=== PATIENT | female | born 1990 ===

== ENCOUNTER 2016-08-10 11:08 | Emergency (ER) | payer OTHER ==
[2016-08-10 11:31] VITALS: BMI 25.4
[2016-08-10 11:34] VITALS: RESP 18; TEMP 98.6; O2SAT 98
--- NOTE | 2016-08-10 14:11 | C.PDOC ---
History Of Present Illness 25 y/o female presents to the ED with complains of headache x3 days. Pt has not taken any medications at home, pt is 3 mo and doesn't know what medications she can take. Pt denies visual changes, nausea, vomiting, fever or any other complaints. No abdominal pain, vaginal bleeding or discharge. Time Seen by Provider: 08/10/16 13:22 Chief Complaint (Nursing): Headache History Per: Patient, Family History/Exam Limitations: language barrier Onset/Duration Of Symptoms: Days Current Symptoms Are (Timing): Still Present Severity: Mild Quality: "Pain" Preceeding Symptoms: None Recent travel outside of the [place]: No Past Medical History Reviewed: Historical Data, Nursing Documentation, Vital Signs Vital Signs: Last Vital Signs Temp 98.6 F 08/10/16 11:31 Pulse 85 08/10/16 15:20 Resp 18 08/10/16 15:20 BP 119/65 08/10/16 15:20 Pulse Ox 98 08/10/16 15:20 Family History: States: Unknown Family Hx - Social History Hx Alcohol Use: No Hx Substance Use: No - Immunization History Hx Tetanus Toxoid Vaccination: No Hx Influenza Vaccination: No Hx Pneumococcal Vaccination: No Review Of Systems Except As Marked, All Systems Reviewed And Found Negative. Constitutional: Negative for: Fever, Chills Eyes: Negative for: Vision Change Gastrointestinal: Negative for: Nausea, Vomiting Neurological: Positive for: Headache Physical Exam - Physical Exam Appears: Non-toxic, No Acute Distress Skin: Warm, Dry, No Rash Head: Atraumatic, Normacephalic Eye(s): bilateral: Normal Inspection, PERRL, EOMI Ear(s): Bilateral: Normal Nose: Normal Oral Mucosa: Moist Chest: Symmetrical Cardiovascular: Rhythm Regular Respiratory: Normal Breath Sounds, No Rales, No Rhonchi, No Wheezing Gastrointestinal/Abdominal: Soft, No Tenderness Extremity: Bilateral: Atraumatic Neurological/Psych: Oriented x3, Normal Speech, Normal Cognition, Normal Cranial Nerves (2- 12 grossly intact), Normal Motor, Normal Sensation ED Course And Treatment O2 Sat by Pulse Oximetry: 98 (on room air) Pulse Ox Interpretation: Normal Progress Note: Plan: tylenol. 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 Patient has no neurologic deficit, photophobia, rash, fever, or nuchal rigidity. Patient was instructed to follow up with physician/clinic in 1-2 days. Disposition - Disposition Disposition: HOME/ ROUTINE Disposition Time: 14:33 Condition: STABLE Additional Instructions: Vaya a holden mdico o la clnica en 2-5 zuniga sin falta, para mas evaluacin. [place] los medicamentos mamta indicado. Volver a la oswaldo de emergencia en cualquier momento si los sntomas persisten o empeoran. Prescriptions: Acetaminophen [Tylenol 325mg tab] 650 mg PO Q4 PRN #20 tab PRN Reason: Pain, Mild (1-3) Instructions: Acute Headache (ED) Print Language: QATARI - Clinical Impression Clinical Impression: Headache - PA / FANCY SEWER / Resident Statement MD/DO has reviewed & agrees with the documentation as recorded. - Scribe Statement The provider has reviewed the documentation as recorded by the Scribe Nico Morales All medical record entries made by the Scribe were at my direction and personally dictated by me. I have reviewed the chart and agree that the record accurately reflects my personal performance of the history, physical exam, medical decision making, and the department course for this patient. I have also personally directed, reviewed, and agree with the discharge instructions and disposition.
[2016-08-10 15:21] VITALS: BP 119/65; PULSE 85
== END 2016-08-10 15:21 | disposition home or self-care (01) ==
LOC: C.ER 11:08
DX: R51 Headache (principal)

== ENCOUNTER 2017-01-23 08:31 | Inpatient (IN) | payer SELFPAY ==
[2017-01-23] MEDS ORDERED: Lactated Ringer's 1,000 ML IV SCH (09:30)
--- NOTE | 2017-01-23 09:31 | OBHP ---
Datetime: 01/23/2017 09:11 IP Adm Impression: Term, intrauterine IP Admit Plan: Admit to unit Admit Comment, IP Provider: 26 y/o @ 38.3 wks [place] [facility] 02/03/17 c/o of LOF bloody at 7:30am, follo wed by contractiong intiially every 15 minutes now eveyr 5, increasing intesntiy and frequency. Pt d enies gross VB, +FM. Pt reports On Wednesday had flu like symptms adn reports subjective fever that katie f resolved. Pt states was not feeling well and took Robittusin. Pt deies any fever, chills, nasue, v omiting, cough, congestion and reports feeling better. 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: denies hx of abnormal pap, fibroids, ovarian cyst, STI PMH: denies PSH: Hernia repair age 7 and 9 FHX: denies MED: PNV, Robittusin x 3 day SHX: negative etoh/tobacco/drugs A/P @ 38.3 wks [facility] in early labor -admit to L+D -npo, ivf -admission labs -request records (pt is unaare of gbs status) -cont toco adn efm -scs -pain managment Pelvic Type - PN: Adequate Extremities - PN: Normal Abdomen - PN: Normal Back - PN: Normal Breast - PN: Normal Lungs - PN: Normal Heart - PN: Normal Thyroid - PN: Normal Neurologic - PN: Normal HEENT - PN: Normal General - PN: Normal Weight - Estimated: 3200 Presentation-Admit: Vertex FHR - Baseline A Provider: 150 Amniotic Fluid Color, Provider: Bloody Membranes, Provider: Ruptured Contraction Comments Provider: q 2-4 min Gestation - Est Wks by US: 38.3 Vital Signs Provider: Reviewed; Within Normal Limits IP Chief Complaint: Suspected ruptured membranes NICHD Variability Prov Fetus A: Moderate 6-25bpm NICHD Decel Fetus A IP Provider: None Dilatation, Provider: 1 Effacement, Provider: 50 Station, Provider: -3 Genitourinary Exam: Normal DTRs - PN: Normal
[2017-01-23] MEDS ORDERED: Penicillin G Potassium 5 MU in Dextrose 5% In Water 50 ML IV ONE (09:35)
--- NOTE | 2017-01-23 09:36 | OBADHP ---
Datetime: 01/23/2017 09:11 Admit Comment, IP Provider: 26 y/o @ 38.3 wks [place] [facility] 02/03/17 c/o of LOF bloody at 7:30am, follo wed by contractiong intiially every 15 minutes now eveyr 5, increasing intesntiy and frequency. Pt d enies gross VB, +FM. Pt reports On Wednesday had flu like symptms adn reports subjective fever that katie f resolved. Pt states was not feeling well and took Robittusin. Pt deies any fever, chills, nasue, v omiting, cough, congestion and reports feeling better. 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 hx of abnormal pap, fibroids, ovarian cyst, STI PMH: denies PSH: Hernia repair age 7 and 9 FHX: denies MED: PNV, Robittusin x 3 day SHX: negative etoh/tobacco/drugs A/P @ 38.3 wks [place] [facility] in early labor -admit to L+D -npo, ivf -admission labs -request records (pt is unaare of gbs status) -cont toco adn efm -scs -pain managment Pelvic Type - PN: Adequate Extremities - PN: Normal Abdomen - PN: Normal Back - PN: Normal Breast - PN: Normal Lungs - PN: Normal Heart - PN: Normal Thyroid - PN: Normal Neurologic - PN: Normal HEENT - PN: Normal General - PN: Normal Weight - Estimated: 3200 Presentation-Admit: Vertex FHR - Baseline A Provider: 150 Amniotic Fluid Color, Provider: Bloody Membranes, Provider: Ruptured Contraction Comments Provider: q 2-4 min Gestation - Est Wks by US: 38.3 Vital Signs Provider: Reviewed; Within Normal Limits IP Chief Complaint: Suspected ruptured membranes NICHD Variability Prov Fetus A: Moderate 6-25bpm NICHD Decel Fetus A IP Provider: None Dilatation, Provider: 1 Effacement, Provider: 50 Station, Provider: -3 Genitourinary Exam: Normal DTRs - PN: Normal IP Adm Impression: Term, intrauterine IP Admit Plan: Admit to unit
[2017-01-23] MEDS ORDERED: Oxytocin 30 UNIT 30 UNITS/500 ML BAG IV SCH ×2 (10:30→21:00)
[2017-01-23 10:34] LABS: BASO % 0.3 % (0.0-2.0); EOS # 0.1 K/uL (0.0-0.7); EOS % 1.1 % (0.0-4.0); HEMATOCRIT 36.8 % (34.0-47.0); LYMPH # 1.3 K/uL (1.0-4.3); LYMPH % 16.7 % (20.0-40.0); MEAN CELL VOLUME 87.1 fL (81.0-99.0); MEAN CORPUSCULAR HEMOGLOBIN 29.4 pg (27.0-31.0); MEAN CORPUSCULAR HGB CONC 33.7 g/dL (33.0-37.0); MEAN PLATELET VOLUME 9.2 fL (7.2-11.7); MONO # 0.5 K/uL (0.0-0.8); MONO % 6.7 % (0.0-10.0); NRBC % 0.1 % (0.0-2.0); RED CELL DISTRIBUTION WIDTH 14.2 % (11.5-14.5); WHITE BLOOD COUNT 7.6 K/uL (4.8-10.8)
[2017-01-23 10:37] LABS: RBC URINE 135 /hpf (0-3); URINE BACTERIA RARE (<OCC); URINE BILIRUBIN NEGATIVE (NEGATIVE); URINE BLOOD 2+ (NEGATIVE); URINE COLOR Yellow (YELLOW); URINE GLUCOSE (UA) NORMAL (Normal); URINE KETONE NEGATIVE (NEGATIVE); URINE LEUKOCYTE ESTERASE NEG Leu/uL (Negative); URINE PROTEIN NEGATIVE (NEGATIVE); URINE UROBILINOGEN NORMAL mg/dL (0.2-1.0); WBC URINE 2 /hpf (0-5)
[2017-01-23 10:49] LABS: ALKALINE PHOSPHATASE 200 U/L (38-126); ALT/SGPT 29 U/L (9-52); AST/SGOT 21 U/L (14-36); BILIRUBIN,TOTAL 0.4 mg/dL (0.2-1.3); BLOOD UREA NITROGEN 5 mg/dL (7-17); CALCIUM 9.6 mg/dl (8.6-10.4); CARBON DIOXIDE 22 mmol/L (22-30); CHLORIDE 106 mmol/L (98-107); GFR AFRICAN-AMERICAN > 60; GLUCOSE,RANDOM 70 mg/dL (65-105); POTASSIUM 3.7 mmol/L (3.6-5.2); SODIUM 139 mmol/L (132-148); TOTAL PROTEIN 6.4 g/dL (6.3-8.3)
[2017-01-23] MEDS ORDERED: Oxytocin 30 UNIT 30 UNITS/500 ML BAG IV ONE (11:12)
[2017-01-23] MEDS ORDERED: Nalbuphine 20 mg/ml Inj (1 ml) IVP ONE (12:00)
[2017-01-23] MEDS ORDERED: Penicillin G Potassium 2.5 MU in Dextrose 5% In Water 50 ML IV SCH (13:45)
[2017-01-23] MEDS ORDERED: Bupivacaine 0.25% Inj(30mL) ONE (15:24)
[2017-01-23 18:13] LABS: RAPID PLASMA REAGIN NONREACTIVE (NONREACTIVE)
--- NOTE | 2017-01-23 18:30 | OBPN ---
Datetime: 01/23/2017 18:28 IP Progress Impression: Normal progression of labor IP Informed Consent Obtain: Vaginal Delivery IP Progress Plan: Continue present management Membranes, Provider: Ruptured Contraction Comments Provider: q 2 min FHR - Baseline A Provider: 140 Gestation - Est Wks by US: 40.0 IP Progress Note Comment: pt seen and examiend c/o pain s/p epidural vss a/p p0 @ 40+ wks in active labor -cont curren managment -piton as per protocol Vital Signs Provider: Reviewed; Within Normal Limits NICHD Variability Prov Fetus A: Marked >25bpm Dilatation, Provider: 7 Effacement, Provider: 70 Station, Provider: -2 NICHD Decel Fetus A IP Provider: None Datetime: 01/23/2017 09:11 Amniotic Fluid Color, Provider: Bloody Weight - Estimated: 3200 Presentation-Admit: Vertex
--- NOTE | 2017-01-23 19:36 | OBPN ---
Datetime: 01/23/2017 19:34 IP Progress Impression: Normal progression of labor IP Progress Plan: Continue present management Contraction Comments Provider: q 3 min FHR - Baseline A Provider: 130 Gestation - Est Wks by US: 40.0 IP Progress Note Comment: pt seen and examiend /co pressure vss VE: 9cm A/P @ 40 wks in acitve labor -cont current mangajent -cont toco and efm Vital Signs Provider: Reviewed Dilatation, Provider: 9 Effacement, Provider: 90 Station, Provider: -1
[2017-01-23] MEDS ORDERED: Oxycodone/Acetaminophen 5/325 mg Tab PO PRN ×2 (20:48)
[2017-01-23] MEDS ORDERED: Benzocaine/Menthol 20%-0.5% Topical Spray (60 ml) TOP PRN (20:48)
--- NOTE | 2017-01-23 20:58 | OBDS ---
MATERNAL INFORMATION Provider Comments: pt was fully dilated and pushing. verbal conset give for vacum due to cat II trac ing, maternal exhaustion. 1 pull. atrumatic, spontanous deliveyr of head in Saroj positon, no nuchal c ord noted. atrumat,c spontnaous delivyer of anterior followed by posteiro shoulder followed by delive yr of body . both oral and nsal passage of baby bulb suctioned. umbical cord clamped and cut. Cord bl ood and cord gases collected adn sent x 2. Spontaneous deliveyr of intact placenta with membrnes. fun dus firm. intact perineum. good hemostasis, no ocmplications. live female infant apgars 9,9 weight of 7lb 1 ounces ebl 400ml LABOR SUMMARY EDC: 01/23/2017 00:00 No. Babies in Womb: 1 LABOR INFORMATION Onset of Labor: 01/23/2017 07:30 Group B Beta Strep: Negative MEMBRANES Membranes Rupture Method: Spontaneous Rupture of Membranes: 01/23/2017 07:30 Amniotic Fluid Color: Clear Amniotic Fluid Amount: Moderate Amniotic Fluid Odor: Normal PRESENTATION/POSITION BABY A Presentation: Cephalic IDENTIFICATION/MEDS BABY A ID Band Number: [id number] Sensor Number: [id number]
[2017-01-24 08:35] LABS: HEMATOCRIT 32.8 % (34.0-47.0); MEAN CELL VOLUME 87.4 fL (81.0-99.0); MEAN CORPUSCULAR HEMOGLOBIN 30.2 pg (27.0-31.0); MEAN CORPUSCULAR HGB CONC 34.6 g/dL (33.0-37.0); MEAN PLATELET VOLUME 9.1 fL (7.2-11.7); RED CELL DISTRIBUTION WIDTH 14.4 % (11.5-14.5); WHITE BLOOD COUNT 10.8 K/uL (4.8-10.8)
[2017-01-24] MEDS: Multiple Vitamins Tab PO SCH (09:56)
--- NOTE | 2017-01-24 11:15 | OBPPN ---
Datetime: 01/24/2017 11:13 PP Pain Prov: Within normal limits PP Nausea Prov: Denies PP Flatus Prov: Yes PP BM Prov: No PP Breasts Prov: Normal PP Heart Prov: Normal PP Lungs Prov: Normal PP Abdomen/Uterus Prov: Normal PP Lochia Prov: Normal PP Vulva/Perineum Prov: Normal PP CVA Tenderness Prov: Normal PP Extremities Prov: Normal PP C/S Incision Prov: Not Applicable PP Progress Prov: Normal PP Plan Prov: Continue present management PP Progress Note Prov: Pt seen and examined and reports pain is controlled with medication. Pt repor ts ambuating, voiding, passing flatus, no BM. Pt denies any fever, chills, nausea, vomiting, CP, SOB. lightheadness, dizzyness. Pt is breast and bottle feeding and denies any feelings of sadness or depr ession. VSS PE: GEN: NAD, AAO x 3 BREAST: NT, Non engorged b/l RES: CTAB/l CVS: RRR, +S1/S2 ABD: soft, NT/ND, +BS. No guarding, no reboudn tenderness, no rigidity FUNDUS: Firm, at level of umbiliucs VE: Minimal lochia, non fouls smelling, laceration site healing ewll, no discharge EXT: no calf tenderness, negative suzanne's sign LABS Pre Hb: 12.4--> post: 11.4 A/P s/p NSVP PPD #1 doing well -pain managment -encourage ambuation with assistance as needed -encouarge breast feeding -cont current managment Vital Signs Provider PP: Reviewed; Within Normal Limits
[2017-01-24] MEDS ORDERED: Measles, Mumps, and Rubella 0.5 ML VIAL SC ONE (20:48)
[2017-01-25 08:35] VITALS: BP 107/66; PULSE 58; RESP 18; TEMP 97.6; O2SAT 99
[2017-01-25] MEDS: Multiple Vitamins Tab PO SCH (09:22)
[2017-01-25] MEDS ORDERED: Measles, Mumps, and Rubella 0.5 ML VIAL SC ONE (09:59)
--- NOTE | 2017-01-25 10:10 | OBPPN ---
Datetime: 01/25/2017 10:02 PP Pain Prov: Within normal limits PP Nausea Prov: Denies PP Flatus Prov: Yes PP BM Prov: No PP Breasts Prov: Normal PP Heart Prov: Normal PP Lungs Prov: Normal PP Abdomen/Uterus Prov: Normal PP Lochia Prov: Normal PP Vulva/Perineum Prov: Normal PP CVA Tenderness Prov: Normal PP Extremities Prov: Normal PP C/S Incision Prov: Not Applicable PP Progress Prov: Normal PP Comments Phys Exam Prov: Abdomen: soft, non distended. Fundus firm, mobile, non tender, 1 FB belo w umbilicus. Mild lochia rubra All other systems reviewed and are negative PP Impression Prov: Normal progression PP Plan Prov: Discharge PP Progress Note Prov: Patient received in room 451, in good spirits. Breast- and bottle feeding. D enies nausea, vomiting; ambulating and voiding without difficulty P.E.: as above. WD in NAD. Awake, alert, oriented to time, person and place. - PPD#1 H/H 11.4/32.8. Rh(+) Assessment: PPD#2 26 y.o. P1, S/P . Afebrile, vital signs stable. Interested in depoProbvera for contraception. Plan: 1) Discharge home 2) See full discharge instructions Vital Signs Provider PP: Reviewed; Within Normal Limits
--- NOTE | 2017-01-25 10:12 | OBDCSUM ---
Datetime: 01/25/2017 10:09 Discharged to, Provider: Home Follow up at, Provider: [facility] Disch Instr Activity: Normal activity; May be up to bathroom; May be up for meals; May Shower Discharge Instructions, Provider: Routine instructions given Discharge Diagnosis, Provider: Term Delivered Follow up in weeks, Provider: 6 weeks Contraception discussed, Prov: Yes Disch Activity Restrictions: No exercising; No lifting; No sexual activity; Nothing in vagina - Inte rcourse, tampons, douche Discharge Diagnosis Prov Other: Status post vaginal delivery Contraception counseling Contraception after Delivery: Depo-Provera
== END 2017-01-25 15:00 | disposition home or self-care (01) | DRG 775 ==
LOC: C.EROB 08:31 → C.4D 09:14 → C.4M 22:31
PROVIDERS: ADMIT Obstetrics & Gynecology; ATTEND Obstetrics & Gynecology
PROC: 10D07Z6 Extraction of Products of Conception, Vacuum, Via Natural or Artificial Opening (ICD-10-PCS; principal; 2017-01-23)
DX: O75.81 Maternal exhaustion complicating labor and delivery (principal); Z37.0 Single live birth; Z3A.40 40 weeks gestation of pregnancy